=== PATIENT | male | born 2000 | race Caucasian/White ===

== ENCOUNTER 2021-06-27 00:50 | Emergency (ER) | payer BC ==
[~2021-06-27] VITALS: Ht 177.8 cm; Wt 70.0 kg
[2021-06-27 02:00] VITALS: BP 114/53
[2021-06-27] MEDS ORDERED: FLUORESCEIN OPHTH TEST STRIP. OU ONE (02:00)
[2021-06-27] MEDS ORDERED: KETOROLAC 60 MG/2 ML VIAL. IM ONE (02:00)
[2021-06-27] MEDS ORDERED: ERYTHROMYCIN 0.5% OPHTH OINTMENT 1GM TUBE. OU ONE (02:00)
[2021-06-27] MEDS ORDERED: KETOROLAC TROMETHAMINE 0.5% OPHTH SOLUTION 5ML BOTTLE. OU ONE (02:00)
[2021-06-27] MEDS ORDERED: TETRACAINE 0.5% OPHTH SOLUTION 4ML BOTTLE. OU ONE (02:00)
--- NOTE | 2021-06-27 02:00 | ED.ADGEN ---
Past Medical History Past Medical History: Other Additional Past Medical Histor: ADHD Past Surgical History: Other Additional Past Surgical Histo: LEFT KNEE Smoking Status: Never Smoker Alcohol Use: Occasionally Drug Use: None General Adult EDM: Chief Complaint: FOREIGN BODY/EYES HPI: HPI: Patient is a 21 year old male presenting with bilateral eye pain. 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 Complaining of bilateral eye pain. Tetanus up-to-date. No other complaints. Does not wear contacts or glasses. Denies any sensation of foreign body Review of Systems: Review of Systems: All other systems within normal limits except for as noted in the HPI Current Medications: Current Medications Medications (Trade) Dose Ordered Sig/Angel Start Time Stop Time Status Last Admin Dose Admin Erythromycin (Romycin) 0.25 inch 1X ONCE 06/27/21 02:00 06/27/21 02:01 Fluorescein Sodium (Ful-Samantha) 1 strip 1X ONCE 06/27/21 02:00 06/27/21 02:01 06/27/21 01:45 1 STRIP Ketorolac Tromethamine (Acular) 1 drop 1X ONCE 06/27/21 02:00 06/27/21 02:01 Ketorolac Tromethamine (Toradol Im) 60 mg 1X ONCE 06/27/21 02:00 06/27/21 02:01 06/27/21 01:43 60 MG Tetracaine HCl (Tetracaine) 1 drop 1X ONCE 06/27/21 02:00 06/27/21 02:01 06/27/21 01:45 1 DROP Allergies: Allergies: Allergies Coded Allergies Type Severity Reaction Last Updated Verified No Known Drug Allergies 06/01/14 No Physical Exam: PE: Constitutional: Well developed, well nourished, no acute distress, non-toxic appearance. [] HENT: Normocephalic, atraumatic, bilateral external ears normal, nose normal. Bilateral conjunctival injection, no purulent drainage. Worsening over time exam shows small pinpoint areas of increased uptake in the cornea, no foreign body, negative Dee Dee sign pain relieved with with tetracaine [] Eyes: PERRLA, conjunctiva normal, no discharge. [] Neck: No rigidity, supple, no stridor. [] Cardiovascular: Regular rate and rhythm, brisk cap refill [] Lungs & Thorax: Non labored symmetric respirations, no tachypnea or respiratory distress [] Abdomen: Soft, nondistended. Skin: Warm, dry, no erythema, no rash. [] Back: Unremarkable Extremities: No deformities, range of motion grossly intact, no lower extremity edema [] Neurologic: Alert and oriented X 3, no focal deficits noted. [] Psychologic: Affect normal, judgement normal, mood normal. [] Current Patient Data: Vital Signs: Vital Signs Date Time Temp Pulse Resp B/P (MAP) Pulse Ox O2 Delivery O2 Flow Rate FiO2 06/27/21 01:02 97.6 73 20 117/63 97 Room Air 97.6 EKG: EKG: [] Heart Score: C/O Chest Pain: No Risk Factors: Risk Factors: DM, Current or recent (<one month) smoker, HTN, HLP, family history of CAD, obesity. Risk Scores: Score 0 - 3: 2.5% MACE over next 6 weeks - Discharge Home Score 4 - 6: 20.3% MACE over next 6 weeks - Admit for Clinical Observation Score 7 - 10: 72.7% MACE over next 6 weeks - Early Invasive Strategies Radiology/Procedures: Radiology/Procedures: [] Course & Med Decision Making: Course & Med Decision Making Pertinent Labs and Imaging studies reviewed. (See chart for details) [] Dragon Disclaimer: Dragon Disclaimer: This electronic medical record was generated, in whole or in part, using a voice recognition dictation system. Departure Departure Impression: Primary Impression: Ultraviolet keratitis of both eyes Disposition: HOME / SELF CARE / HOMELESS Condition: STABLE Referrals: ZACKARY JAIMES MD Patient Instructions: Eye - Ultraviolet Keratitis Additional Instructions: Erythromycin ointment: Apply strip to each eye every 6-8 hours until symptoms resolved. Ketorolac drops: 1 to 2 drops to eye as needed for pain every 6 hours. RACHEL NESS MD Jun 27, 2021 02:00
== END 2021-06-27 02:11 | disposition home or self-care (01) ==
LOC: ER 00:50
DX: H16.8 Other keratitis (principal); F90.9 Attention-deficit hyperactivity disorder, unspecified type
CPT/HCPCS: 96372; 99284; J1885

== ENCOUNTER 2022-04-08 13:15 | Emergency (ER) | payer BC ==
[~2022-04-08] VITALS: Ht 177.8 cm; Wt 81.0 kg
[2022-04-08 13:20] VITALS: BP 133/58
[2022-04-08] MEDS ORDERED: IBUPROFEN 200 MG TABLET. PO ONE (13:45)
[2022-04-08] MEDS ORDERED: LIDOCAINE 2% Multi-Dose 20 ML VIAL. IJ ONE (13:45)
[2022-04-08] MEDS ORDERED: ACETAMINOPHEN 325 MG TABLET. PO ONE (13:45)
--- NOTE | 2022-04-08 14:14 | RAD ---
EXAMINATION: XR FINGER(S)_LEFT 2+VIEWS_RT. 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 COMPARISON: None. FINDINGS: No fracture, dislocation or radiopaque foreign body. The joint spaces and articular surfaces appea r unremarkable. IMPRESSION: Unremarkable exam. Electronically signed by: Bob Vasquez MD (04/08/2022 2:12 PM) [id number]
--- NOTE | 2022-04-08 14:24 | PHYS DOC ---
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 Patient reports last tetanus immunization was less than 5 years ago. Does not take medications at home, did not take pain medications prior to arrival to the emergency department, did not cleanse wound, states she just applied pressure and came to the emergency department. Patient denies prior health history, denies cigarette smoking, EtOH use, illicit drug use. Patient denies homicidal or suicidal ideations. Patient reports a 7 out of 10 pain at the laceration site. Patient denies other physical injuries or physical complaints. Review of Systems: Review of Systems: 14 body systems of review of systems have been reviewed. See HPI for pertinent positives and negative responses, otherwise all other systems are negative, nonpertinent or noncontributory. Constitutional: Negative except as outlined in HPI above. Skin: Negative except as outlined in HPI above. Eyes: Negative except as outlined in HPI above. HENT: Negative except as outlined in HPI above. Respiratory: Negative except as outlined in HPI above. Cardiovascular: Negative except as outlined in HPI above. GI: Negative except as outlined in HPI above. : Negative except as outlined in HPI above. Musculoskeletal: Negative except as outlined in HPI above. Integument: Negative except as outlined in HPI above. Neurologic: Negative except as outlined in HPI above. Endocrine: Negative except as outlined in HPI above. Lymphatic: Negative except as outlined in HPI above. Psychiatric: Negative except as outlined in HPI above. Heart Score: C/O Chest Pain: No Risk Factors: Risk Factors: DM, Current or recent (<one month) smoker, HTN, HLP, family history of CAD, obesity. Risk Scores: Score 0 - 3: 2.5% MACE over next 6 weeks - Discharge Home Score 4 - 6: 20.3% MACE over next 6 weeks - Admit for Clinical Observation Score 7 - 10: 72.7% MACE over next 6 weeks - Early Invasive Strategies Current Medications: Current Medications Medications (Trade) Dose Ordered Sig/Angel Start Time Stop Time Status Last Admin Dose Admin Acetaminophen (Tylenol) 650 mg 1X ONCE 04/08/22 13:45 04/08/22 13:46 DC 04/08/22 13:43 650 MG Ibuprofen (Motrin) 600 mg 1X ONCE 04/08/22 13:45 04/08/22 13:46 DC 04/08/22 13:43 600 MG Lidocaine HCl (Lidocaine 2% 20ml Vial) 20 ml 1X ONCE 04/08/22 13:45 04/08/22 13:46 DC 04/08/22 13:43 20 ML Allergies: Allergies: Allergies Coded Allergies Type Severity Reaction Last Updated Verified No Known Drug Allergies 06/01/14 No Physical Exam: PE: Constitutional: Well developed, well nourished, no acute distress, non-toxic appearance. 22-year-old male in no apparent distress. HENT: Normocephalic, atraumatic. Eyes: Conjunctiva normal, no discharge. Neck: Normal range of motion, no stridor. Cardiovascular: No cyanosis appreciated, distal cap refill less than 2 seconds. Lungs & Thorax: Patient is in no respiratory distress, no audible adventitious l sukhdev sounds appreciated. Abdomen: Nontender, no abnormalities noted. Skin: Warm, dry, no erythema, no rash. See extremity note for focused skin examination. Back: No tenderness, no deformities. Extremities: No tenderness, no cyanosis, no clubbing, ROM intact, no edema. There is a 1 cm "V "shaped laceration at the middle finger of the left hand over MIP joint dorsal skin surface, bleeding is controlled, full AROM/PROM of all fingers. There is no deformity present. Distal cap refills less than 2 seconds of bilateral upper extremities, 2+ bilateral radial pulses. Neurologic: Alert and oriented X 3, normal motor function, normal sensory function, no focal deficits noted. Psychologic: Affect normal, judgement normal, mood normal. 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 COMPARISON: None. FINDINGS: No fracture, dislocation or radiopaque foreign body. The joint spaces and articular surfaces appear unremarkable. IMPRESSION: Unremarkable exam. Electronically signed by: Bob Vasquez MD (04/08/2022 2:12 PM) [id number] Course & Med Decision Making: Course & Med Decision Making Pertinent Labs and Imaging studies reviewed. (See chart for details) 22-year-old male presents emergency department for repair of laceration left middle finger. See laceration repair note Patient's tetanus immunization is current per his verbalization of receiving tetanus immunization less than 5 years ago. 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 The area was dressed, bandaged, splinted by ED nursing staff, patient remains neurovascular intact after satisfactory splint placement. Will start patient on Keflex prophylaxis regimen. Reviewed suture care at home, sutures out in 7 to 10 days, return to ER precautions and concerns, patient gave verbal understanding of and is amenable to ED discharge planning. Discussed with the patient all findings and diagnostic testing as well as the need to follow-up with their primary care provider for further evaluation and treatment or return to the ED if any new or worsening symptoms. Strict return precautions were also discussed at length, the patient voiced understanding and agreement with the discharge planning. The patient was nontoxic in appearance, in no apparent distress, and hemodynamically stable at the time of disposition. Dragon Disclaimer: Dragon Disclaimer: This electronic medical record was generated, in whole or in part, using a voice recognition dictation system. Laceration Repair Lac Repair Indication: Laceration left middle finger MIP joint aspect dorsal skin surface. Time: 1430 Confirmed: Patient, procedure, side, and site correct. Consent: Patient, has given verbal consent. Description/repair Procedure: The patient was placed in the appropriate position and anesthesia around the laceration was achieved with 4 cc 2% lidocaine without epinephrine digital block of the left middle finger. The area was then soaked in Betadine solution for 15 minutes then vigorously scrubbed and irrigated with copious amounts of saline. The laceration was closed with 2 interrupted sutures using 5- 0 nylon. The wound area was then dressed with bacitracin and Band-Aid, then sp linted for immobilization of MIP joint. Complexity: Single layer. Post procedure exam: Circulation, motor, sensory examination intact, bleeding controlled. Total repaired wound length: 1 cm. Other Items: There were no other The patient tolerated the procedure well. Complications: There were no complications. Performed by: Self, Roger Dong STIPPLER-C Supervision: Dr. Holden was present for consult regarding the critical aspects of the procedure including closure and post procedure exam. Total time: 25 minutes. Departure Departure Impression: Primary Impression: Laceration of left middle finger Qualified Codes: S61.213A - Laceration without foreign body of left middle finger without damage to nail, initial encounter Disposition: HOME / SELF CARE / HOMELESS Condition: GOOD Referrals: NO PCP (PCP) Patient Instructions: Laceration Care, Adult Additional Instructions: You were seen today in the emergency department for a laceration of your left middle finger. An x-ray did not reveal any foreign body or damage to the bones. Because of the place meant of the laceration over your knuckle, a aluminum finger splint was applied to minimize any motion of the knuckle as this may cause undue stress to the sutures during the healing process. Please have the sutures removed in 7 to 10 days. You may remove the aluminum finger splint after sutures are removed. As we discussed, I am starting you on an antibiotic, please take as directed until complete. I am sending this to the pharmacy of your choice. You may use [id number] Tylenol or Motrin for ongoing aches and pains. Follow-up with your primary care physician for suture removal or ongoing symptoms. I have attached a list of area healthcare providers for you to follow-up with. Thank you for visiting our Emergency Department. It was a pleasure taking care of you today in the emergency department and we appreciate you trusting us with your care. If any additional problems come up don't hesitate to return to visit us. Please follow up with your primary care provider so they can plan additional care if needed and know about the problem that you had. If symptoms worsen come back to the Emergency Department. Any concerning sy mptoms that start such as chest pain, shortness of air, weakness or numbness on one side of the body, running high fevers or any other concerning symptoms return to the ER. [facility] [address] [place] [address] [facility] [address] [place] [address] [facility] [address] [facility] [place] [address] [facility] [address] [place] [address] [facility] [address] [place] [address] [address] [place] [address] [address] [place] [address] [facility] [address] [place] [address] [facility] [address] [place] [address] [facility] [address] [place] [address] Scripts Cephalexin (CEPHALEXIN) 500 Mg Tablet 1 TAB PO QID for 7 Days, #28 TAB 0 Refills Prov: ROGER DONG APRN 04/08/22 ROGER DONG APRN April 08, 2022 14:24
[2022-04-08] MEDS ORDERED: NEOMY/BACITR/POLYMYXIN OINT PACKET. TP ONE ×2 (15:08→15:15)
[2022-04-08] MEDS ORDERED: CEPH500T PO (15:15)
[2022-04-08] MEDS ORDERED: BACITRACIN TOPICAL OINT PACKET. TP ONE (15:30)
== END 2022-04-08 15:19 | disposition home or self-care (01) ==
LOC: ER 13:15
DX: S61.213A Laceration without foreign body of left middle finger without damage to nail, initial encounter (principal); F90.9 Attention-deficit hyperactivity disorder, unspecified type; Y28.8XXA Contact with other sharp object, undetermined intent, initial encounter; Y93.89 Activity, other specified; Y92.89 Other specified places as the place of occurrence of the external cause; Y99.8 Other external cause status
CPT/HCPCS: 12001; 73140; 99284